=== PATIENT | female | born 1950 | race Caucasian/White ===

== ENCOUNTER 2018-03-04 21:52 | Inpatient (IN) | END 2018-03-11 20:05 | DRG 65 ==

== ENCOUNTER 2018-12-12 18:21 | Inpatient (IN) | payer OTHER ==
[~2018-12-12] VITALS: Ht 170.2 cm; Wt 70.5 kg
[~2018-12-12 18:21] MED LIST: ADV25050 INHALATION; AMLO-147 PO; ASPI-831 PO; ATOR40TA68 PO; CHLO25TA2 PO; HYDR-3980 PO; LORA1TAB PO; LOSA100T15 PO; LYR75 PO; METO-448 PO; VENL150C PO
--- NOTE | 2018-12-12 18:34 | ERD ---
ER Documentation Chief Complaint Chief Complaint R-LEG SHAKING TODAY AFTER WALKING; "LEG FEELS WEIRD" HPI This is a 68-year-old woman who suffered acute lacunar infarct to the right corpus callosum last year resulting in momentary jerking movements to the left lower extremity, who experienced a jerking movement to the right lower extremity this evening and called 911 because she was worried about another stroke. She states episode occurred while walking and she felt her right leg jerk and move for a few seconds, but it did not result in her falling or losing consciousness. She denies fevers or chills, no headache no blurry vision, no vomiting or diarrhea. Patient was transported here by EMS without further complications ROS All systems reviewed and are negative except as per history of present illness. Medications Home Meds Reported Medications Aspirin* (Aspirin* EC) 81 Mg Tablet.dr, 81 MG PO DAILY, TAB 12/12/18 Venlafaxine Hcl* (Venlafaxine Hcl ER*) 150 Mg Cap.er.24h, 300 MG PO DAILY, CAP 12/12/18 Amlodipine Besylate* (Norvasc*) 5 Mg Tablet, 5 MG PO DAILY, TAB 12/12/18 Lorazepam* (Lorazepam*) 1 Mg Tablet, 1 MG PO HS PRN for ANXIETY, #30 TAB 12/12/18 Hydrocodone/Acetaminophen ([place] 10-325 Tablet) 1 Each Tablet, 1 EACH PO NEEDED, TAB 12/12/18 Metoprolol Tartrate* (Lopressor*) 25 Mg Tab, 25 MG PO BID, #60 TAB 12/12/18 Atorvastatin* (Atorvastatin*) 40 Mg Tablet, 40 MG PO QHS, #30 TAB 12/12/18 Propranolol Hcl* (Inderal* LA) 60 Mg Cap.sa.24h, 60 MG PO QAM, CAP 12/12/18 Losartan-Hydrochlorothiazide (Losartan-HCTZ) 100-12.5 Mg Tab, 1 TAB PO DAILY, TAB 12/12/18 Discontinued Reported Medications Hydrocodone/Acetaminophen ([place] 10-325 Tablet) 1 Each Tablet, 1 EACH PO N EEDED, TAB 03/04/18 Losartan Potassium* (Losartan Potassium*) 100 Mg Tablet, 100 MG PO DAILY, TAB 03/04/18 Venlafaxine Hcl* (Effexor XR*) 150 Mg Cap.sr.24h, 300 MG PO DAILY, CAP 03/04/18 Lorazepam* (Lorazepam*) 1 Mg Tablet, 1 MG PO 5 TIMES DAILY PRN for ANXIETY, #30 TAB 03/04/18 Salmeterol Xinaf/Fluticasone* (Advair*) 250-50 Diskus Inhaler, 1 INH INHALATION BID, #1 INHALER 03/04/18 Discontinued Scripts Chlorthalidone* (Chlorthalidone*) 25 Mg Tablet, 25 MG PO DAILY, #60 TAB Prov:RULAERINFelicia 03/11/18 Pregabalin* (Lyrica*) 75 Mg Capsule, 75 MG PO TID, #90 CAP Prov:RULAERINFelicia 03/11/18 Aspirin (Aspirin) 81 Mg Chew, 81 MG PO DAILY, #60 TAB Prov:RULAABBE PEREZ 03/11/18 Atorvastatin* (Atorvastatin*) 40 Mg Tablet, 40 MG PO HS, #60 TAB Prov:RULAABBE PEREZ 03/11/18 Metoprolol Tartrate* (Lopressor*) 25 Mg Tab, 25 MG PO BID, #60 TAB Prov:RULAABBE PEREZ 03/11/18 Amlodipine Besylate* (Amlodipine Besylate*) 10 Mg Tablet, 10 MG PO DAILY, #60 TAB Prov:RULAABBE 03/11/18 Allergies Allergies: Coded Allergies: codeine (Verified Allergy, Unknown, 12/12/18) PMhx/Soc Acute lacunar infarct along the anterior body of the right corpus callosum, diabetes mellitus, depression, anxiety, hypertension History of Surgery: No Anesthesia Reaction: No Hx Neurological Disorder: No Hx Respiratory Disorders: Yes (asthma, lung ca (removed half the left lung)) Hx Cardiac Disorders: Yes (HTN) Hx Psychiatric Problems: No Hx Miscellaneous Medical Probl: Yes (See EMR for details. ) Hx Alcohol Use: No Hx Substance Use: No Hx Tobacco Use: No FmHx Family History: diabetes Physical Exam Vitals Vital Signs Date Temp Pulse Resp B/P (MAP) Pulse Ox O2 O2 Flow FiO2 Time Delivery Rate 12/12/18 98.1 60 20 162/73 98 Room Air 20:01 (102) 12/12/18 98.1 54 16 155/83 100 Room Air 18:53 (107) 12/12/18 98.1 52 16 147/67 100 18:30 (93) Physical Exam GENERAL: Well-developed, well-nourished, appears anxious, afebrile, dehydrated HEENT: Dry mucous membranes, pink conjunctiva, no cervical spine tenderness or step-off deformities, no goiter, no jaundice or icterus, extraocular movements intact without pain. NEURO: Alert and oriented 3, cranial nerves II through XII intact bilaterally, pupils equal round reactive to light, no focal deficits or facial asymmetry, sensation intact distally Strength 5/5 in upper and lower extremities bilaterally CARDIAC: Regular rate and rhythm, no murmurs rubs or gallops LUNGS: Clear bilaterally no wheezing crackles or stridor ABDOMEN: Soft nontender, no guarding, no rigidity, no rebound, no psoas sign no obturator sign. SKIN: Warm and dry to touch, no abrasions, contusions, or hematomas, no lacerations, no ecchymosis, no target lesions, and without ulcers EXTREMITIES: No clubbing cyanosis or edema, calves are bilaterally symmetrical, no Homans sign, no popliteal cord sign. Distal pulses equal and bilateral PSYCH: Normal affect without agitation or irritability Result Diagram: 12/12/18184912/12/181849 Results 24 hrs Laboratory Tests Test 12/12/18 18:50 12/12/18 20:02 White Blood Count 14.5 10^3/ul Red Blood Count 4.69 10^6/ul Hemoglobin 13.5 g/dl Hematocrit 42.0 % Mean Corpuscular Volume 89.6 fl Mean Corpuscular Hemoglobin 28.8 pg Mean Corpuscular Hemoglobin Concent 32.1 g/dl Red Cell Distribution Width 13.5 % Platelet Count 409 10^3/UL Mean Platelet Volume 9.7 fl Immature Granulocytes % 0.700 % Neutrophils % 60.7 % Lymphocytes % 29.6 % Monocytes % 6.2 % Eosinophils % 2.1 % Basophils % 0.7 % Nucleated Red Blood Cells % 0.0 /100WBC Immature Granulocytes # 0.100 10^3/ul Neutrophils # 8.8 10^3/ul Lymphocytes # 4.3 10^3/ul Monocytes # 0.9 10^3/ul Eosinophils # 0.3 10^3/ul Basophils # 0.1 10^3/ul Nucleated Red Blood Cells # 0.0 10^3/ul Sodium Level 143 mmol/L Potassium Level 3.9 mmol/L Chloride Level 106 mmol/L Carbon Dioxide Level 31 mmol/L Anion Gap 6 Blood Urea Nitrogen 41 mg/dl Creatinine 0.90 mg/dl Est Glomerular Filtrat Rate mL/min > 60 mL/min Glucose Level 196 mg/dl Calcium Level 9.2 mg/dl Total Bilirubin 0.0 mg/dl Direct Bilirubin 0.00 mg/dl Indirect Bilirubin 0.0 mg/dl Aspartate Amino Transf (AST/SGOT) 37 IU/L Alanine Aminotransferase (ALT/SGPT) 72 IU/L Alkaline Phosphatase 96 IU/L Total Protein 7.4 g/dl Albumin 4.1 g/dl Globulin 3.30 g/dl Albumin/Globulin Ratio 1.24 Lipase 44 U/L Urine Color YELLOW Urine Clarity SLIGHTLY CLOUDY Urine pH 5.0 Urine Specific [place] 1.019 Urine Ketones NEGATIVE mg/dL Urine Nitrite POSITIVE mg/dL Urine Bilirubin NEGATIVE mg/dL Urine Urobilinogen NEGATIVE mg/dL Urine Leukocyte Esterase 1+ Enma/ul Urine Microscopic RBC 0 /HPF Urine Microscopic WBC 33 /HPF Urine Hemoglobin NEGATIVE mg/dL Urine Glucose NEGATIVE mg/dL Urine Total Protein NEGATIVE mg/dl Current Medications Medications Dose Sig/Timothy Start Time Status Last (Trade) Ordered Route PRN Stop Time Admin Dose Reason Admin Lorazepam 0.5 mg ONCE ONCE 12/12/18 DC 12/12/18 (Ativan) IV 19:00 12/12/18 19:04 19:01 Sodium 1,000 ml @ Q1H STAT 12/12/18 DC 12/12/18 Chloride 1,000 mls/hr IV 18:44 12/12/18 19:04 19:43 Procedures/MDM IV line was established patient was placed on cardiac care unit nurse rhythm strip revealed a sinus rhythm at about 80 bpm with upright P and T waves. Patient was afebrile I administered 1 L normal saline IV for dehydration and lorazepam 0.5 mg IV x1 for anxiety. CT scan of the brain was negative for acute bleed mass or shift.IMPRESSION: 1. No acute intracranial hemorrhage, transcortical infarction or mass effect. 2. Mild intracranial atherosclerosis and chronic small vessel ischemic changes. 3. Small lacunar infarcts in the right corpus callosum and right cingulate gyrus. 4. Mild generalized cerebral volume loss. CBC was normal, electrolytes revealed dehydration with a BUN/creatinine 41/0.9, liver function tests are normal, urinalysis revealed acute UTI. I treated the patient was ceftriaxone 1 g IV and another bolus IV saline for dehydration. Patient admitted to [facility] for continued medical management, hydration, antibiotics, and possible neurology consultation. Departure Diagnosis: Primary Impression: Muscle spasms of lower extremity Laterality: right Qualified Codes: M62.838 - Other muscle spasm Additional Impressions: Acute dehydration Acute UTI Condition: MERVAT Gallo MD Dec 12, 2018 18:34
[2018-12-12] MEDS ORDERED: SOD CHLORIDE 0.9% 1,000 ML IV STA (18:44)
[2018-12-12] MEDS ORDERED: LORAZEPAM 2 MG INJ IV ONE (19:00)
[2018-12-12] MEDS ORDERED: LOSA1TAB28 PO (19:22)
[2018-12-12] MEDS ORDERED: ATOR40TA68 PO (19:22)
[2018-12-12] MEDS ORDERED: PROP60CA7 PO (19:22)
[2018-12-12] MEDS ORDERED: METO-448 PO (19:23)
[2018-12-12] MEDS ORDERED: LORA1TAB PO (19:24)
[2018-12-12] MEDS ORDERED: HYDR-3980 PO (19:24)
[2018-12-12] MEDS ORDERED: ASPI-817 PO (19:25)
[2018-12-12] MEDS ORDERED: VENL150C94 PO (19:25)
[2018-12-12] MEDS ORDERED: AMLO5TAB4 PO (19:25)
[2018-12-12] MEDS ORDERED: NACL 0.9% 3 ML SYG IV SCH (21:00)
[2018-12-12] MEDS: AMLODIPINE 5 MG TAB PO SCH (21:00)
[2018-12-12] MEDS ORDERED: BISACODYL (EC) 5 MG TAB PO PRN (21:00)
[2018-12-12] MEDS ORDERED: NON-FORMULARY/PATIENT OWN MED (Losartan-Hydrochlorothiazide (Losartan-HCTZ) 1 TAB) PO SCH (21:00)
[2018-12-12] MEDS: ATORVASTATIN 40 MG TAB PO SCH (21:00)
[2018-12-12] MEDS ORDERED: ONDANSETRON 4 MG TAB PO PRN (21:00)
[2018-12-12] MEDS ORDERED: DOCUSATE SODIUM 100 MG CAP PO PRN (21:00)
[2018-12-12] MEDS ORDERED: CEFTRIAXONE 1 GM/50 ML (PMX) 50 ML IVPB SCH (21:30)
[2018-12-12 21:39] VITALS: BP 157/73; PULSE 51; RESP 18
[2018-12-12 22:00] VITALS: Ht 170.2 cm; Wt 70.5 kg
[2018-12-12] MEDS: ACETAMINOPHEN 325 MG TAB PO PRN (22:27)
[2018-12-13 02:50] VITALS: BP 121/57; PULSE 50; RESP 16
--- NOTE | 2018-12-13 04:33 | HP ---
Date/Time of Note Date/Time of Note Patient seen and examined on 12/12/2018 at approximately 11:30 PM Assessment/Plan VTE Prophylaxis SCD applied (from Nsg): Yes Pharmacological prophylaxis: NA/contraindicated Pharm contraindication: low risk/ambulating Lines/Catheters IV Catheter Type (from Nrsg): Saline Lock Urinary Cath still in place: No Assessment/Plan Hospital Course This is a 68-year-old female being admitted to the [facility] floor for: #1 right leg weakness and pain: Patient at the current time does not have any focal neurological deficits, she is able to lift all 4 extremities without any problems and she was able to ambulate with the assistance of her walker with the RN. She does have palpable tenderness over right hip and lumbosacral region on exam. MRI of the lumbar spine from March 2018 did show: Most notable level is at L3-L4 where multifactorial disease results in overall severe mass effect on the thecal sac. At the current time I will proceed with a x-ray of the bilateral hips as well as a repeat MRI of the lumbar spine. Physical therapy evaluation. #2 generalized weakness: Secondary likely to underlying dehydration, urinary tr act infection, and dual beta-blockade. Patient has received a bolus of normal saline in the ER, will give an additional 500 cc bolus and encourage p.o. intake. Antibiotics for UTI. Will discontinue her metoprolol at the current time. We will hold her beta-blockers at the current time, consider resumption of propranolol and discontinuation of metoprolol given that she also is bradycardic. #3 Urinary tract infection: Urine culture, ceftriaxone 1 g every 24 hours #4 tremors: Currently holding beta-blockade, consider resumption of propranolol if bradycardia improves. #5 CVA: Continue statin, aspirin #6 hypertension: Continue Norvasc, losartan hydrochlorthiazide combo, hold current beta-blockers given patient's bradycardia and if we do need to resume one can try propranolol first given that she has tremors. #7 depression: Continue home meds #8 prediabetes: Check hemoglobin A1c #9 DVT GI prophylaxis: SCDs, no GI prophylaxis indicated Further treatment strategy will be implemented as per the clinical course. Result Diagram: 12/12/18184912/12/181849 Results 24hrs Laboratory Tests Test 12/12/18 18:50 12/12/18 20:02 White Blood Count 14.5 H Red Blood Count 4.69 Hemoglobin 13.5 Hematocrit 42.0 Mean Corpuscular Volume 89.6 Mean Corpuscular Hemoglobin 28.8 L Mean Corpuscular Hemoglobin Concent 32.1 Red Cell Distribution Width 13.5 Platelet Count 409 Mean Platelet Volume 9.7 Immature Granulocytes % 0.700 H Neutrophils % 60.7 Lymphocytes % 29.6 Monocytes % 6.2 Eosinophils % 2.1 Basophils % 0.7 Nucleated Red Blood Cells % 0.0 Immature Granulocytes # 0.100 H Neutrophils # 8.8 H Lymphocytes # 4.3 H Monocytes # 0.9 Eosinophils # 0.3 Basophils # 0.1 Nucleated Red Blood Cells # 0.0 Sodium Level 143 Potassium Level 3.9 Chloride Level 106 Carbon Dioxide Level 31 Anion Gap 6 Blood Urea Nitrogen 41 H Creatinine 0.90 Est Glomerular Filtrat Rate mL/min > 60 Glucose Level 196 Calcium Level 9.2 Total Bilirubin 0.0 L Direct Bilirubin 0.00 Indirect Bilirubin 0.0 Aspartate Amino Transf (AST/SGOT) 37 Alanine Aminotransferase (ALT/SGPT) 72 H Alkaline Phosphatase 96 Total Protein 7.4 Albumin 4.1 Globulin 3.30 H Albumin/Globulin Ratio 1.24 Lipase 44 Urine Color YELLOW Urine Clarity SLIGHTLY CLOUDY A Urine pH 5.0 Urine Specific [place] 1.019 Urine Ketones NEGATIVE Urine Nitrite POSITIVE A Urine Bilirubin NEGATIVE Urine Urobilinogen NEGATIVE Urine Leukocyte Esterase 1+ H Urine Microscopic RBC 0 Urine Microscopic WBC 33 H Urine Hemoglobin NEGATIVE Urine Glucose NEGATIVE Urine Total Protein NEGATIVE HPI/ROS Admit Date/Time Admit Date/Time Dec 12, 2018 at 20:31 Hx of Present Illness Chief complaint: Right lower extremity weakness while walking This is a 68-year-old woman who suffered acute lacunar infarct to the right corpus callosum last year resulting in momentary jerking movements to the left lower extremity, who experienced a jerking movement to the right lower extremity this evening and called 911 because she was worried about another stroke. She states episode occurred while walking and she felt her right leg jerk and move for a few seconds, but it did not result in her falling or losing consciousness. She also reports that she has been experiencing right hip pain as well as back pain. She denies fevers or chills, no headache no blurry vision, no vomiting or diarrhea. Patient does not display any focal neurological deficits. No speech problems. She previously was found to have an abnormality on her lumbar MRI. She does report urinary urgency as well. She also reports a poor appetite over the last few days. Of note patient also has a history of tremors and she recently was started on propranolol approximately 10 days ago. And she is also continued her metoprolol. Patient was in rehab after her stroke and does still use a walker at times when she needs it however at home she is able to get around without needing the w alker. Allergies: Codeine Medications: See YOHANNES LEYVA Const: As per HPI Eyes : No pain discharge or redness or change in visual acuity ENT: No pain, sore throat, congestion, congestion, dysphagia or discharge Respiratory: No shortness of breath, cough, sputum, wheezing, or pleuritic pain Cardiovascular: No chest pain, palpitation, PND, or edema GI : no change in appetite, abdominal pain, nausea, vomiting, diarrhea, constipation, or change in the color his stool Genitourinary: No dysuria, hematuria, flank pain , discharge or CVA tenderness Musculoskeletal: As per HPI Skin: No rash, bruising or hives Neuro: As per HPI Endocrine: No polyuria, polydipsia, temperature intolerance Psych: No hallucination, depression, anxiety or suicidal ideation PMH/Family/Social Past Medical History CVA,Depression, hypertension, prediabetes, shingles, sciatica Medications Current Medications Amlodipine Besylate (Norvasc) 5 mg DAILY PO ; Start 12/12/18 at 21:00 Aspirin (Halfprin) 81 mg DAILY PO ; Start 12/13/18 at 09:00 Atorvastatin Calcium (Lipitor) 40 mg QHS PO ; Start 12/12/18 at 21:00 Lorazepam (Ativan) 1 mg HS PRN PO ANXIETY; Start 12/12/18 at 21:00 Venlafaxine HCl (Effexor Xr) 300 mg DAILY PO ; Start 12/13/18 at 09:00 IV Flush (NS 3 ml) 3 ml PER PROTOCOL IV ; Start 12/12/18 at 21:00 Ondansetron HCl (Zofran Tab) 4 mg Q6H PRN PO NAUSEA/VOMITING; Start 12/12/18 at 21:00 Acetaminophen (Tylenol Tab) 650 mg Q6H PRN PO .PAIN 1-3 OR TEMP Last administered on 12/12/18at 22:27; Admin Dose 650 MG; Start 12/12/18 at 21:00 Docusate Sodium (Colace) 100 mg Q12H PRN PO .CONSTIPATION; Start 12/12/18 at 21:00 Bisacodyl (Dulcolax) 5 mg DAILY PRN PO .CONSTIPATION; Start 12/12/18 at 21:00 Ceftriaxone Sodium 50 ml @ 100 mls/hr Q24H IVPB Last administered on 12/12/18at 22:27; Admin Dose 100 MLS/HR; Start 12/12/18 at 21:30 Losartan Potassium (Cozaar) 100 mg DAILY PO ; Start 12/13/18 at 09:00 Hydrochlorothiazide (Hydrochlorothiazide) 12.5 mg DAILY PO ; Start 12/13/18 at 09:00 Coded Allergies: codeine (Verified Allergy, Unknown, 12/12/18) Past Surgical History Unknown Family History Significant Family History: no pertinent family hx Social History Alcohol Use: none Smoking Status: Never smoker Drug Use: none Exam/Review of Systems Vital Signs Vitals Vital Signs Date Temp Pulse Resp B/P (MAP) Pulse Ox O2 O2 Flow FiO2 Time Delivery Rate 12/13/18 98.9 50 16 121/57 94 02:50 (78) 12/12/18 Room Air 21:02 Intake and Output 12/12/18 12/12/18 12/13/18 1515:00 23:00 07:00 IntakeIntake Total 50 ml BalanceBalance 50 ml Exam Exam General: Patient is currently lying in bed in no acute distress, she is able to sit up in the bed without any issue. HEENT: Atraumatic, normocephalic. The pupils are equal, round and reactive. Extraocular motor are intact Neck: Supple with full range of motion. No rigidity or meningismus Chest: Nontender Lungs: Clear to auscultation bilaterally no crackles rales or wheezing Heart: Normal S1-S2, Regular rhythm and rate. Abdomen: Soft , nontender, nondistended , bowel sounds are present. No guarding no rebound tenderness , No masses or organomegaly. No costovertebral temporal angle mass Extremities: Normal to inspection, no edema no cyanosis Musculoskeletal: Tenderness to palpation over the anterior thigh as well as the lumbosacral region, Neurologic: Normal mental status, speech normal, cranial nerves II through XII are intact, motor and sensory are intact, no focal weakness, strength 5 out of 5 in bilateral upper and lower extremities CRISTOBAL FERGUSON Dec 13, 2018 04:18
[2018-12-13 08:00] VITALS: BP 147/79; PULSE 50; RESP 18
[2018-12-13] MEDS: VENLAFAXINE (XR) 75 MG CAP PO SCH (09:04)
[2018-12-13] MEDS: ASPIRIN (EC) 81 MG TAB PO SCH (09:04)
[2018-12-13] MEDS: HYDROCHLOROTHIAZIDE 12.5 MG CAP PO SCH (09:06)
[2018-12-13] MEDS: LOSARTAN 50 MG TAB PO SCH (09:06)
[2018-12-13] MEDS: AMLODIPINE 5 MG TAB PO SCH (09:07)
[2018-12-13 14:00] VITALS: BP 132/18; PULSE 84; RESP 18
--- NOTE | 2018-12-13 14:05 | PN ---
Date/Time of Note Date/Time of Note DATE: 12/13/18 TIME: 14:03 Assessment/Plan VTE Prophylaxis SCD applied (from Nsg): Yes Pharmacological prophylaxis: heparin Lines/Catheters IV Catheter Type (from Nrsg): Saline Lock Urinary Cath still in place: No Assessment/Plan Hospital Course 68 yo female with h/o DDD, sciatica, CVA presents with LLE weakness - Suspect radiculopathy - CVA unlikely - PT/OT eval - Neurology consult - Patient would benefit from PT services, either inpatient or outpatient Result Diagram: 12/13/18 0506 12/13/18 0506 Results 24hrs Laboratory Tests Test 12/12/18 18:50 12/12/18 20:02 12/13/18 05:06 White Blood Count 14.5 H 11.0 #H Red Blood Count 4.69 3.84 L Hemoglobin 13.5 11.2 L Hematocrit 42.0 34.9 L Mean Corpuscular Volume 89.6 90.9 Mean Corpuscular Hemoglobin 28.8 L 29.2 Mean Corpuscular 32.1 32.1 Hemoglobin Concent Red Cell Distribution Width 13.5 13.5 Platelet Count 409 307 # Mean Platelet Volume 9.7 10.0 Immature Granulocytes % 0.700 H 0.500 H Neutrophils % 60.7 44.5 Lymphocytes % 29.6 44.0 Monocytes % 6.2 7.9 Eosinophils % 2.1 2.6 Basophils % 0.7 0.5 Nucleated Red Blood Cells % 0.0 0.0 Immature Granulocytes # 0.100 H 0.060 H Neutrophils # 8.8 H 4.9 Lymphocytes # 4.3 H 4.8 H Monocytes # 0.9 0.9 Eosinophils # 0.3 0.3 Basophils # 0.1 0.1 Nucleated Red Blood Cells # 0.0 0.0 Sodium Level 143 142 Potassium Level 3.9 3.8 Chloride Level 106 110 Carbon Dioxide Level 31 30 Anion Gap 6 2 L Blood Urea Nitrogen 41 H 31 H Creatinine 0.90 0.78 Est Glomerular Filtrat > 60 > 60 Rate mL/min Glucose Level 196 177 Calcium Level 9.2 8.6 Total Bilirubin 0.0 L 0.0 L Direct Bilirubin 0.00 0.00 Indirect Bilirubin 0.0 0.0 Aspartate Amino 37 24 Transf (AST/SGOT) Alanine 72 H 53 Aminotransferase (ALT/SGPT) Alkaline Phosphatase 96 66 Total Protein 7.4 5.8 #L Albumin 4.1 3.1 #L Globulin 3.30 H 2.70 Albumin/Globulin Ratio 1.24 1.14 Lipase 44 Urine Color YELLOW Urine Clarity SLIGHTLY CLOUDY A Urine pH 5.0 Urine Specific [place] 1.019 Urine Ketones NEGATIVE Urine Nitrite POSITIVE A Urine Bilirubin NEGATIVE Urine Urobilinogen NEGATIVE Urine Leukocyte Esterase 1+ H Urine Microscopic RBC 0 Urine Microscopic WBC 33 H Urine Hemoglobin NEGATIVE Urine Glucose NEGATIVE Urine Total Protein NEGATIVE Hemoglobin A1c 7.3 H Triglycerides Level 233 H Cholesterol Level 150 LDL Cholesterol, Calculated 63 HDL Cholesterol 40 Cholesterol/HDL Ratio 3.7 Thyroid Stimulating 1.200 Hormone (TSH) Subjective 24 Hr Interval Summary Free Text/Dictation Continues to complain of LLE weakness Wokring with PT Head CT wihtout acute path Exam/Review of Systems Exam Vitals Vital Signs Date Temp Pulse Resp B/P (MAP) Pulse Ox O2 O2 Flow FiO2 Time Delivery Rate 12/13/18 99.0 50 18 147/79 96 08:00 (101) 12/12/18 Room Air 21:02 Intake and Output 12/12/18 12/12/18 12/13/18 1515:00 23:00 07:00 IntakeIntake Total 50 ml 480 ml BalanceBalance 50 ml 480 ml Constitutional: alert, oriented, well developed Psych: no complaints, nl mood/affect Head: normocephalic, atraumatic Eyes: nl conjunctiva, EOMI, nl lids, nl sclera, PERRL ENMT: nl external ears & nose, nl lips & teeth, nl nasal mucosa & septum Neck: supple, non-tender Respiratory: clear to auscultation, normal air movement Cardiovascular: regular rate and rhythm, nl pulses Gastrointestinal: soft, nl liver, spleen, non-tender Musculoskeletal: nl extremities to inspection, nl gait and stance Extremities: normal pulses Neurological: CONE SEWER II-XII intact, nl mental status, nl speech, nl strength Skin: nl turgor; No rash or lesions Lymph: nl lymph nodes Results Results 24hrs Laboratory Tests Test 12/12/18 18:50 12/12/18 20:02 12/13/18 05:06 White Blood Count 14.5 H 11.0 #H Red Blood Count 4.69 3.84 L Hemoglobin 13.5 11.2 L Hematocrit 42.0 34.9 L Mean Corpuscular Volume 89.6 90.9 Mean Corpuscular Hemoglobin 28.8 L 29.2 Mean Corpuscular 32.1 32.1 Hemoglobin Concent Red Cell Distribution Width 13.5 13.5 Platelet Count 409 307 # Mean Platelet Volume 9.7 10.0 Immature Granulocytes % 0.700 H 0.500 H Neutrophils % 60.7 44.5 Lymphocytes % 29.6 44.0 Monocytes % 6.2 7.9 Eosinophils % 2.1 2.6 Basophils % 0.7 0.5 Nucleated Red Blood Cells % 0.0 0.0 Immature Granulocytes # 0.100 H 0.060 H Neutrophils # 8.8 H 4.9 Lymphocytes # 4.3 H 4.8 H Monocytes # 0.9 0.9 Eosinophils # 0.3 0.3 Basophils # 0.1 0.1 Nucleated Red Blood Cells # 0.0 0.0 Sodium Level 143 142 Potassium Level 3.9 3.8 Chloride Level 106 110 Carbon Dioxide Level 31 30 Anion Gap 6 2 L Blood Urea Nitrogen 41 H 31 H Creatinine 0.90 0.78 Est Glomerular Filtrat > 60 > 60 Rate mL/min Glucose Level 196 177 Calcium Level 9.2 8.6 Total Bilirubin 0.0 L 0.0 L Direct Bilirubin 0.00 0.00 Indirect Bilirubin 0.0 0.0 Aspartate Amino 37 24 Transf (AST/SGOT) Alanine 72 H 53 Aminotransferase (ALT/SGPT) Alkaline Phosphatase 96 66 Total Protein 7.4 5.8 #L Albumin 4.1 3.1 #L Globulin 3.30 H 2.70 Albumin/Globulin Ratio 1.24 1.14 Lipase 44 Urine Color YELLOW Urine Clarity SLIGHTLY CLOUDY A Urine pH 5.0 Urine Specific [place] 1.019 Urine Ketones NEGATIVE Urine Nitrite POSITIVE A Urine Bilirubin NEGATIVE Urine Urobilinogen NEGATIVE Urine Leukocyte Esterase 1+ H Urine Microscopic RBC 0 Urine Microscopic WBC 33 H Urine Hemoglobin NEGATIVE Urine Glucose NEGATIVE Urine Total Protein NEGATIVE Hemoglobin A1c 7.3 H Triglycerides Level 233 H Cholesterol Level 150 LDL Cholesterol, Calculated 63 HDL Cholesterol 40 Cholesterol/HDL Ratio 3.7 Thyroid Stimulating 1.200 Hormone (TSH) Medications Medication Current Medications Amlodipine Besylate (Norvasc) 5 mg DAILY PO Last administered on 12/13/18at 09:07; Admin Dose 5 MG; Start 12/12/18 at 21:00 Aspirin (Halfprin) 81 mg DAILY PO Last administered on 12/13/18 09:04; Admin Dose 81 MG; Start 12/13/18 at 09:00 Atorvastatin Calcium (Lipitor) 40 mg QHS PO ; Start 12/12/18 at 21:00 Lorazepam (Ativan) 1 mg HS PRN PO ANXIETY; Start 12/12/18 at 21:00 Venlafaxine HCl (Effexor Xr) 300 mg DAILY PO Last administered on 12/13/18 09:04; Admin Dose 300 MG; Start 12/13/18 at 09:00 IV Flush (NS 3 ml) 3 ml PER PROTOCOL IV ; Start 12/12/18 at 21:00 Ondansetron HCl (Zofran Tab) 4 mg Q6H PRN PO NAUSEA/VOMITING; Start 12/12/18 at 21:00 Acetaminophen (Tylenol Tab) 650 mg Q6H PRN PO .PAIN 1-3 OR TEMP Last administered on 12/12/18 22:27; Admin Dose 650 MG; Start 12/12/18 at 21:00 Docusate Sodium (Colace) 100 mg Q12H PRN PO .CONSTIPATION; Start 12/12/18 at 21:00 Bisacodyl (Dulcolax) 5 mg DAILY PRN PO .CONSTIPATION; Start 12/12/18 at 21:00 Ceftriaxone Sodium 50 ml @ 100 mls/hr Q24H IVPB Last administered on 12/12/18 22:27; Admin Dose 100 MLS/HR; Start 12/12/18 at 21:30 Losartan Potassium (Cozaar) 100 mg DAILY PO Last administered on 12/13/18 09:06; Admin Dose 100 MG; Start 12/13/18 at 09:00 Hydrochlorothiazide (Hydrochlorothiazide) 12.5 mg DAILY PO Last administered on 12/13/18 09:06; Admin Dose 12.5 MG; Start 12/13/18 at 09:00 Propranolol HCl (Inderal) 60 mg DAILY PO ; Start 12/13/18 at 14:00 Pregabalin (Lyrica) 75 mg BID PO ; Start 12/13/18 at 13:00 MACRINA PERRY MD Dec 13, 2018 14:05
[2018-12-13] MEDS: ACETAMINOPHEN 325 MG TAB PO PRN (14:11)
[2018-12-13] MEDS: PREGABALIN 75 MG CAP PO SCH ×2 (14:12→21:43)
[2018-12-13] MEDS: PROPRANOLOL 20 MG TAB PO SCH (16:01)
--- NOTE | 2018-12-13 17:51 | CONS ---
Assessment/Plan Assessment/Plan Hospital Course 68 yo F with hx of prior stroke who p/w R leg weakness x 2 days... for which neurology is consulted. The clinical picture is most ominously concerning for stroke. A lumbar radiculopathy is additionally considered. CTH is notable for chronic infarcts but is without obvious acute intracranial pathology. P: MRI brain without contrast for further characterization Await MRI L spine Cont ASA/Lipitor pending the above Cont medical management per primary PT/OT as necessary Will follow clinically Consultation Date/Type/Reason Admit Date/Time Dec 12, 2018 at 20:31 Type of Consult Neurology Reason for Consultation lower limb weakness Requesting Provider: MACRINA PERRY MD Date/Time of Note DATE: 12/13/18 TIME: 17:51 Hx of Present Illness 68 yo F with hx of stroke (03/22), sciatica and multiple other comorbidities who presents with R lower limb weakness. History was obtained from pt and chart review. The pt confirms the story below: Chief complaint: Right lower extremity weakness while walking This is a 68-year-old woman who suffered acute lacunar infarct to the right corpus callosum last year resulting in momentary jerking movements to the left lower extremity, who experienced a jerking movement to the right lower extremity this evening and called 911 because she was worried about another stroke. She states episode occurred while walking and she felt her right leg jerk and move for a few seconds, but it did not result in her falling or losing consciousness. She also reports that she has been experiencing right hip pain as well as back pain. She denies fevers or chills, no headache no blurry vision, no vomiting or diarrhea. Patient does not display any focal neurological deficits. No speech problems. She previously was found to have an abnormality on her lumbar MRI. She does report urinary urgency as well. She also reports a poor appetite over the last few days. Of note patient also has a history of tremors and she recently was started on propranolol approximately 10 days ago. And she is also continued her metoprolol. Patient was in rehab after her stroke and does still use a walker at times when she needs it however at home she is able to get around without needing the walker. negative unless noted otherwise in HPI Exam/Review of Systems Exam Vitals Vital Signs Date Temp Pulse Resp B/P (MAP) Pulse Ox O2 O2 Flow FiO2 Time Delivery Rate 12/13/18 98.8 84 18 132/18 96 14:00 (56) 12/12/18 Room Air 21:02 Intake and Output 12/12/18 12/12/18 12/13/18 1515:00 23:00 07:00 IntakeIntake Total 50 ml 480 ml BalanceBalance 50 ml 480 ml Exam PE: Gen Appearance: No Apparent Distress HEENT: Normocephalic Cardiovascular: Regular rate Lungs: Clear bilaterally Abdomen: Soft Extremities: Dry NE: The patient was alert and fully oriented. Language was normal. Fund of knowledge was normal. Pupils were equal and reactive to light. There was no afferent pupillary defect. Visual barton were normal. Funduscopic examination was limited. Extra-ocular movements were full. Ptosis was absent. There was no nystagmus. Facial sensation was normal. Face was symmetric with normal strength. Hearing was intact. Palate movements were normal. Neck strength was normal. There was normal tongue bulk and speed of movement. Tone was normal. Muscle bulk was normal. I did not see fasciculations. Arms were strong to confrontation; hip flexors were mildly weak; lower limbs were mildly weak. She had weak dorsiflexion of her left foot. Vibration sensation was normal. Temperature and pinprick sensation was normal. Rapid alternating movements were normal. There was no dysmetria. There was no intention tremor. Gait was steady when ambulating with a FWW; the pt had di fficulty lifting her R leg while walking. Arm reflexes were symmetric; leg reflex was mildly diminished on the R. Valenzuela's sign was absent. Plantar responses were flexor. Results Result Diagram: 12/13/18 0506 12/13/18 0506 Results 24hrs Laboratory Tests Test 12/12/18 18:50 12/12/18 20:02 12/13/18 05:06 White Blood Count 14.5 H 11.0 #H Red Blood Count 4.69 3.84 L Hemoglobin 13.5 11.2 L Hematocrit 42.0 34.9 L Mean Corpuscular Volume 89.6 90.9 Mean Corpuscular Hemoglobin 28.8 L 29.2 Mean Corpuscular 32.1 32.1 Hemoglobin Concent Red Cell Distribution Width 13.5 13.5 Platelet Count 409 307 # Mean Platelet Volume 9.7 10.0 Immature Granulocytes % 0.700 H 0.500 H Neutrophils % 60.7 44.5 Lymphocytes % 29.6 44.0 Monocytes % 6.2 7.9 Eosinophils % 2.1 2.6 Basophils % 0.7 0.5 Nucleated Red Blood Cells % 0.0 0.0 Immature Granulocytes # 0.100 H 0.060 H Neutrophils # 8.8 H 4.9 Lymphocytes # 4.3 H 4.8 H Monocytes # 0.9 0.9 Eosinophils # 0.3 0.3 Basophils # 0.1 0.1 Nucleated Red Blood Cells # 0.0 0.0 Sodium Level 143 142 Potassium Level 3.9 3.8 Chloride Level 106 110 Carbon Dioxide Level 31 30 Anion Gap 6 2 L Blood Urea Nitrogen 41 H 31 H Creatinine 0.90 0.78 Est Glomerular Filtrat > 60 > 60 Rate mL/min Glucose Level 196 177 Calcium Level 9.2 8.6 Total Bilirubin 0.0 L 0.0 L Direct Bilirubin 0.00 0.00 Indirect Bilirubin 0.0 0.0 Aspartate Amino 37 24 Transf (AST/SGOT) Alanine 72 H 53 Aminotransferase (ALT/SGPT) Alkaline Phosphatase 96 66 Total Protein 7.4 5.8 #L Albumin 4.1 3.1 #L Globulin 3.30 H 2.70 Albumin/Globulin Ratio 1.24 1.14 Lipase 44 Urine Color YELLOW Urine Clarity SLIGHTLY CLOUDY A Urine pH 5.0 Urine Specific Renick 1.019 Urine Ketones NEGATIVE Urine Nitrite POSITIVE A Urine Bilirubin NEGATIVE Urine Urobilinogen NEGATIVE Urine Leukocyte Esterase 1+ H Urine Microscopic RBC 0 Urine Microscopic WBC 33 H Urine Hemoglobin NEGATIVE Urine Glucose NEGATIVE Urine Total Protein NEGATIVE Hemoglobin A1c 7.3 H Triglycerides Level 233 H Cholesterol Level 150 LDL Cholesterol, Calculated 63 HDL Cholesterol 40 Cholesterol/HDL Ratio 3.7 Thyroid Stimulating 1.200 Hormone (TSH) Medications Medication Current Medications Amlodipine Besylate (Norvasc) 5 mg DAILY PO Last administered on 12/13/18at 09:07; Admin Dose 5 MG; Start 12/12/18 at 21:00 Aspirin (Halfprin) 81 mg DAILY PO Last administered on 12/13/18at 09:04; Admin Dose 81 MG; Start 12/13/18 at 09:00 Atorvastatin Calcium (Lipitor) 40 mg QHS PO ; Start 12/12/18 at 21:00 Lorazepam (Ativan) 1 mg HS PRN PO ANXIETY; Start 12/12/18 at 21:00 Venlafaxine HCl (Effexor Xr) 300 mg DAILY PO Last administered on 12/13/18at 09:04; Admin Dose 300 MG; Start 12/13/18 at 09:00 IV Flush (NS 3 ml) 3 ml PER PROTOCOL IV ; Start 12/12/18 at 21:00 Ondansetron HCl (Zofran Tab) 4 mg Q6H PRN PO NAUSEA/VOMITING; Start 12/12/18 at 21:00 Acetaminophen (Tylenol Tab) 650 mg Q6H PRN PO .PAIN 1-3 OR TEMP Last administered on 12/13/18at 14:11; Admin Dose 650 MG; Start 12/12/18 at 21:00 Docusate Sodium (Colace) 100 mg Q12H PRN PO .CONSTIPATION; Start 12/12/18 at 21:00 Bisacodyl (Dulcolax) 5 mg DAILY PRN PO .CONSTIPATION; Start 12/12/18 at 21:00 Losartan Potassium (Cozaar) 100 mg DAILY PO Last administered on 12/13/18at 09: 06; Admin Dose 100 MG; Start 12/13/18 at 09:00 Hydrochlorothiazide (Hydrochlorothiazide) 12.5 mg DAILY PO Last administered on 12/13/18 09:06; Admin Dose 12.5 MG; Start 12/13/18 at 09:00 Propranolol HCl (Inderal) 60 mg DAILY PO Last administered on 12/13/18at 16:01; Admin Dose 60 MG; Start 12/13/18 at 14:00 Pregabalin (Lyrica) 75 mg BID PO Last administered on 12/13/18at 14:12; Admin Dose 75 MG; Start 12/13/18 at 13:00 Past Medical History reviewed Home Meds Reported Medications Aspirin* (Aspirin* EC) 81 Mg Tablet.dr, 81 MG PO DAILY, TAB 12/12/18 Venlafaxine Hcl* (Venlafaxine Hcl ER*) 150 Mg Cap.er.24h, 300 MG PO DAILY, CAP 12/12/18 Amlodipine Besylate* (Norvasc*) 5 Mg Tablet, 5 MG PO DAILY, TAB 12/12/18 Lorazepam* (Lorazepam*) 1 Mg Tablet, 1 MG PO HS PRN for ANXIETY, #30 TAB 12/12/18 Hydrocodone/Acetaminophen (Rupert 10-325 Tablet) 1 Each Tablet, 1 EACH PO NEEDED, TAB 12/12/18 Metoprolol Tartrate* (Lopressor*) 25 Mg Tab, 25 MG PO BID, #60 TAB 12/12/18 Atorvastatin* (Atorvastatin*) 40 Mg Tablet, 40 MG PO QHS, #30 TAB 12/12/18 Propranolol Hcl* (Inderal* LA) 60 Mg Cap.sa.24h, 60 MG PO QAM, CAP 12/12/18 Losartan-Hydrochlorothiazide (Losartan-HCTZ) 100-12.5 Mg Tab, 1 TAB PO DAILY, TAB 12/12/18 Discontinued Reported Medications Hydrocodone/Acetaminophen (Rupert 10-325 Tablet) 1 Each Tablet, 1 EACH PO NEEDED, TAB 03/04/18 Losartan Potassium* (Losartan Potassium*) 100 Mg Tablet, 100 MG PO DAILY, TAB 03/04/18 Venlafaxine Hcl* (Effexor XR*) 150 Mg Cap.sr.24h, 300 MG PO DAILY, CAP 03/04/18 Lorazepam* (Lorazepam*) 1 Mg Tablet, 1 MG PO 5 TIMES DAILY PRN for ANXIETY, #30 TAB 03/04/18 Salmeterol Xinaf/Fluticasone* (Advair*) 250-50 Diskus Inhaler, 1 INH INHALATION BID, #1 INHALER 03/04/18 Discontinued Scripts Chlorthalidone* (Chlorthalidone*) 25 Mg Tablet, 25 MG PO DAILY, #60 TAB Prov:ABBE HORTA 03/11/18 Pregabalin* (Lyrica*) 75 Mg Capsule, 75 MG PO TID, #90 CAP Prov:ABBE HORTA 03/11/18 Aspirin (Aspirin) 81 Mg Chew, 81 MG PO DAILY, #60 TAB Prov:ABBE HORTA 03/11/18 Atorvastatin* (Atorvastatin*) 40 Mg Tablet, 40 MG PO HS, #60 TAB Prov:ABBE HORTA 03/11/18 Metoprolol Tartrate* (Lopressor*) 25 Mg Tab, 25 MG PO BID, #60 TAB Prov:ABBE HORTA 03/11/18 Amlodipine Besylate* (Amlodipine Besylate*) 10 Mg Tablet, 10 MG PO DAILY, #60 TAB Prov:ABBE HORTA 03/11/18 Medications Current Medications Amlodipine Besylate (Norvasc) 5 mg DAILY PO Last administered on 12/13/18 09:07; Admin Dose 5 MG; Start 12/12/18 at 21:00 Aspirin (Halfprin) 81 mg DAILY PO Last administered on 12/13/18 09:04; Admin Dose 81 MG; Start 12/13/18 at 09:00 Atorvastatin Calcium (Lipitor) 40 mg QHS PO ; Start 12/12/18 at 21:00 Lorazepam (Ativan) 1 mg HS PRN PO ANXIETY; Start 12/12/18 at 21:00 Venlafaxine HCl (Effexor Xr) 300 mg DAILY PO Last administered on 12/13/18 09:04; Admin Dose 300 MG; Start 12/13/18 at 09:00 IV Flush (NS 3 ml) 3 ml PER PROTOCOL IV ; Start 12/12/18 at 21:00 Ondansetron HCl (Zofran Tab) 4 mg Q6H PRN PO NAUSEA/VOMITING; Start 12/12/18 at 21:00 Acetaminophen (Tylenol Tab) 650 mg Q6H PRN PO .PAIN 1-3 OR TEMP Last administered on 12/13/18 14:11; Admin Dose 650 MG; Start 12/12/18 at 21:00 Docusate Sodium (Colace) 100 mg Q12H PRN PO .CONSTIPATION; Start 12/12/18 at 21:00 Bisacodyl (Dulcolax) 5 mg DAILY PRN PO .CONSTIPATION; Start 12/12/18 at 21:00 Losartan Potassium (Cozaar) 100 mg DAILY PO Last administered on 12/13/18 09:06; Admin Dose 100 MG; Start 12/13/18 at 09:00 Hydrochlorothiazide (Hydrochlorothiazide) 12.5 mg DAILY PO Last administered on 12/13/18 09:06; Admin Dose 12.5 MG; Start 12/13/18 at 09:00 Propranolol HCl (Inderal) 60 mg DAILY PO Last administered on 12/13/18 16:01; A dmin Dose 60 MG; Start 12/13/18 at 14:00 Pregabalin (Lyrica) 75 mg BID PO Last administered on 12/13/18 14:12; Admin Dose 75 MG; Start 12/13/18 at 13:00 Allergies: Coded Allergies: codeine (Verified Allergy, Unknown, 12/12/18) Past Surgical History reviewed Social History reviewed Alcohol Use: none Smoking Status: Never smoker Drug Use: none KATRINA ASHLEY NP Dec 13, 2018 17:51
[2018-12-13 20:00] VITALS: BP 134/63; PULSE 71; RESP 19
[2018-12-13] MEDS: LORAZEPAM 1 MG TAB PO PRN (21:43)
[2018-12-13] MEDS: ATORVASTATIN 40 MG TAB PO SCH (21:43)
[2018-12-14 02:00] VITALS: BP 148/76; PULSE 61; RESP 18
[2018-12-14] MEDS: ACETAMINOPHEN 325 MG TAB PO PRN ×3 (06:57→16:31)
[2018-12-14 08:00] VITALS: BP 133/60; PULSE 56; RESP 18
[2018-12-14] MEDS: ASPIRIN (EC) 81 MG TAB PO SCH (08:35)
[2018-12-14] MEDS: VENLAFAXINE (XR) 75 MG CAP PO SCH (08:35)
[2018-12-14] MEDS: HYDROCHLOROTHIAZIDE 12.5 MG CAP PO SCH (08:35)
[2018-12-14] MEDS: AMLODIPINE 5 MG TAB PO SCH (08:35)
[2018-12-14] MEDS: LOSARTAN 50 MG TAB PO SCH (08:36)
[2018-12-14] MEDS: PREGABALIN 75 MG CAP PO SCH ×2 (08:36→21:05)
[2018-12-14] MEDS: PROPRANOLOL 20 MG TAB PO SCH (08:36)
[2018-12-14 14:00] VITALS: BP 117/66; PULSE 57; RESP 18
--- NOTE | 2018-12-14 14:32 | PN ---
Date/Time of Note Date/Time of Note DATE: 12/14/18 TIME: 14:30 Assessment/Plan VTE Prophylaxis Risk score (from Ns)>0 risk: 3 SCD applied (from Ns): Yes Pharmacological prophylaxis: heparin Lines/Catheters IV Catheter Type (from Nrsg): Saline Lock Urinary Cath still in place: No Assessment/Plan Hospital Course 68 yo female with h/o DDD, sciatica, CVA presents with LLE weakness - MRI negative for stroke. Lumbar MRI does not show acute process. Likely this is from deconditioning and degenerative disc disease. Requires PT h/o CVA - Continue aspirin, statin, BP control Discharge plan: - Pending acute rehab evaluation Result Diagram: 12/13/18 0506 12/13/18 0506 Subjective 24 Hr Interval Summary Free Text/Dictation MRI negative for stroke MRI back shows degenerative disc disease but no nerve impingement Patient offered discharge, prefers to wait to see if she can go to acute rehab Exam/Review of Systems Exam Vitals Vital Signs Date Temp Pulse Resp B/P (MAP) Pulse Ox O2 O2 Flow FiO2 Time Delivery Rate 12/14/18 98.2 56 18 133/60 97 Room Air 08:00 (84) Intake and Output 12/13/18 12/13/18 12/14/18 1515:00 23:00 07:00 IntakeIntake Total 450 ml 350 ml 480 ml BalanceBalance 450 ml 350 ml 480 ml Constitutional: alert, oriented, well developed Psych: no complaints, nl mood/affect Head: normocephalic, atraumatic Eyes: nl conjunctiva, EOMI, nl lids, nl sclera, PERRL ENMT: nl external ears & nose, nl lips & teeth, nl nasal mucosa & septum Neck: supple, non-tender Respiratory: clear to auscultation, normal air movement Cardiovascular: regular rate and rhythm, nl pulses Gastrointestinal: soft, nl liver, spleen, non-tender Musculoskeletal: nl extremities to inspection, nl gait and stance Extremities: normal pulses Neurological: DEPUTY FELONY CLERK II-XII intact, nl mental status, nl speech, nl strength Skin: nl turgor; No rash or lesions Lymph: nl lymph nodes Medications Medication Current Medications Amlodipine Besylate (Norvasc) 5 mg DAILY PO Last administered on 12/14/18at 08:35; Admin Dose 5 MG; Start 12/12/18 at 21:00 Aspirin (Halfprin) 81 mg DAILY PO Last administered on 12/14/18 08:35; Admin Dose 81 MG; Start 12/13/18 at 09:00 Atorvastatin Calcium (Lipitor) 40 mg QHS PO Last administered on 12/13/18 21:43; Admin Dose 40 MG; Start 12/12/18 at 21:00 Lorazepam (Ativan) 1 mg HS PRN PO ANXIETY Last administered on 12/13/18 21:43; Admin Dose 1 MG; Start 12/12/18 at 21:00 Venlafaxine HCl (Effexor Xr) 300 mg DAILY PO Last administered on 12/14/18 08:35; Admin Dose 300 MG; Start 12/13/18 at 09:00 IV Flush (NS 3 ml) 3 ml PER PROTOCOL IV ; Start 12/12/18 at 21:00 Ondansetron HCl (Zofran Tab) 4 mg Q6H PRN PO NAUSEA/VOMITING; Start 12/12/18 at 21:00 Docusate Sodium (Colace) 100 mg Q12H PRN PO .CONSTIPATION; Start 12/12/18 at 21:00 Bisacodyl (Dulcolax) 5 mg DAILY PRN PO .CONSTIPATION; Start 12/12/18 at 21:00 Losartan Potassium (Cozaar) 100 mg DAILY PO Last administered on 12/14/18 08:36; Admin Dose 100 MG; Start 12/13/18 at 09:00 Hydrochlorothiazide (Hydrochlorothiazide) 12.5 mg DAILY PO Last administered on 12/14/18 08:35; Admin Dose 12.5 MG; Start 12/13/18 at 09:00 Propranolol HCl (Inderal) 60 mg DAILY PO Last administered on 12/14/18 08:36; Admin Dose 60 MG; Start 12/13/18 at 14:00 Pregabalin (Lyrica) 75 mg BID PO Last administered on 12/14/18 08:36; Admin Dose 75 MG; Start 12/13/18 at 13:00 Acetaminophen (Tylenol Tab) 650 mg Q4H PRN PO .PAIN 1-3 OR TEMP Last administered on 12/14/18 11:27; Admin Dose 650 MG; Start 12/14/18 at 11:30 MACRINA PERRY MD Dec 14, 2018 14:32
--- NOTE | 2018-12-14 14:45 | CONS ---
Assessment/Plan Assessment/Plan Hospital Course 68 yo F with hx of prior stroke who p/w R leg weakness x 2 days... for which neurology is consulted. Progression of known lumbar spine disease is considered. MRI brain is notable for small chronic strokes, but is reassuringly without acute intracranial pathology,. MRI L spine is most notable for mild-moderate central canal stenosis at L3-L5, but is stable from prior. P: Cont ASA/Lipitor for secondary stroke prevention, per ops PT/OT as necessary Other management per primary Will follow clinically Consultation Date/Type/Reason Admit Date/Time Dec 12, 2018 at 20:31 Type of Consult Neurology Reason for Consultation lower limb weakness Requesting Provider: MACRINA PERRY MD Date/Time of Note DATE: 12/14/18 TIME: 14:45 24 HR Interval Summary Free Text/Dictation Continues medsurg monitoring. No changes in pt condition reported. Pt is without new complaints at this time. Exam Vital Signs Vitals Vital Signs Date Temp Pulse Resp B/P (MAP) Pulse Ox O2 O2 Flow FiO2 Time Delivery Rate 12/14/18 98.2 56 18 133/60 97 Room Air 08:00 (84) Intake and Output 12/13/18 12/13/18 12/14/18 1515:00 23:00 07:00 IntakeIntake Total 450 ml 350 ml 480 ml BalanceBalance 450 ml 350 ml 480 ml Exam PE: Gen Appearance: No Apparent Distress HEENT: Normocephalic Cardiovascular: Regular rate Lungs: Clear bilaterally Abdomen: Soft Extremities: Dry NE: The patient was alert and fully oriented. Language was normal. Fund of knowledge was normal. Pupils were equal and reactive to light. There was no afferent pupillary defect. Visual barton were normal. Funduscopic examination was limited. Extra-ocular movements were full. Ptosis was absent. There was no nystagmus. Facial sensation was normal. Face was symmetric with normal strength. Hearing was intact. Palate movements were normal. Neck strength was normal. There was normal tongue bulk and speed of movement. Tone was normal. Muscle bulk was normal. I did not see fasciculations. Arms were strong to confrontation; hip flexors were mildly weak; lower limbs were mildly weak. She had weak dorsiflexion of her left foot. Vibration sensation was normal. Temperature and pinprick sensation was normal. Rapid alternating movements were normal. There was no dysmetria. There was no intention tremor. Gait was steady when ambulating with a FWW; the pt had difficulty lifting her R leg while walking. Arm reflexes were symmetric; leg reflex was mildly diminished on the R. Valenzuela's sign was absent. Plantar responses were flexor. KATRIAN ASHLEY NP Dec 14, 2018 14:45 ROGER DALE Dec 15, 2018 06:33
[2018-12-14 20:00] VITALS: BP 129/69; PULSE 54; RESP 18
[2018-12-14] MEDS: ATORVASTATIN 40 MG TAB PO SCH (21:05)
[2018-12-14] MEDS: LORAZEPAM 1 MG TAB PO PRN (21:05)
[2018-12-15 02:00] VITALS: BP 142/69; PULSE 53; RESP 17
[2018-12-15 07:54] VITALS: BP 145/69; PULSE 61; RESP 18
[2018-12-15] MEDS ORDERED: LORAZEPAM 0.5 MG TAB PO ONE (08:00)
[2018-12-15] MEDS ORDERED: HYDROCODONE/APAP (5/325) TAB PO ONE ×2 (08:00→17:30)
[2018-12-15] MEDS: HYDROCHLOROTHIAZIDE 12.5 MG CAP PO SCH (09:00)
[2018-12-15] MEDS: ASPIRIN (EC) 81 MG TAB PO SCH (09:04)
[2018-12-15] MEDS: VENLAFAXINE (XR) 75 MG CAP PO SCH (09:04)
[2018-12-15] MEDS: LOSARTAN 50 MG TAB PO SCH (09:04)
[2018-12-15] MEDS: AMLODIPINE 5 MG TAB PO SCH (09:05)
[2018-12-15] MEDS: PREGABALIN 75 MG CAP PO SCH ×2 (09:05→20:11)
[2018-12-15] MEDS: PROPRANOLOL 20 MG TAB PO SCH (09:05)
--- NOTE | 2018-12-15 10:00 | CONS ---
Assessment/Plan Assessment/Plan Hospital Course 68 yo F with hx of prior stroke who p/w R leg weakness x 2 days... for which neurology is consulted. Progression of known lumbar spine disease is considered. MRI brain is notable for small chronic strokes, but is reassuringly without acute intracranial pathology,. MRI L spine is most notable for mild-moderate central canal stenosis at L3-L5, but is stable from prior. P: Cont ASA/Lipitor for secondary stroke prevention, per ops PT/OT as necessary Other management per primary Will follow clinically Consultation Date/Type/Reason Admit Date/Time Dec 12, 2018 at 20:31 Type of Consult Neurology Requesting Provider: MACRINA PERRY MD Date/Time of Note DATE: 12/15/18 TIME: 09:59 24 HR Interval Summary Free Text/Dictation Continues acute care Exam Vital Signs Vitals Vital Signs Date Temp Pulse Resp B/P (MAP) Pulse Ox O2 O2 Flow FiO2 Time Delivery Rate 12/15/18 98.2 61 18 145/69 97 Room Air 07:54 (94) Intake and Output 12/14/18 12/14/18 12/15/18 1515:00 23:00 07:00 IntakeIntake Total 120 ml 600 ml 360 ml BalanceBalance 120 ml 600 ml 360 ml Exam Comprehensive completed; stable from prior. ROGER DALE Dec 15, 2018 10:00
[2018-12-15 14:00] VITALS: BP 122/66; PULSE 59; RESP 18
--- NOTE | 2018-12-15 14:51 | PN ---
Date/Time of Note Date/Time of Note DATE: 12/15/18 TIME: 14:46 Assessment/Plan VTE Prophylaxis Risk score (from Nsg)>0 risk: 6 SCD applied (from Nsg): Yes Pharmacological prophylaxis: heparin Lines/Catheters IV Catheter Type (from Nrsg): Saline Lock Urinary Cath still in place: No Assessment/Plan Hospital Course 68 yo female with h/o DDD, sciatica, CVA presents with LLE weakness - MRI negative for stroke. Lumbar MRI does not show acute process. Likely this is from deconditioning and degenerative disc disease. Requires PT h/o CVA - Continue aspirin, statin, BP control Depression: - Continue venlafaxine Hypertension: - Continue HCTZ and amlodipine, well controlled Discharge plan: - Pending acute rehab approval. If not, to home with HHPT Result Diagram: 12/13/18 0506 12/13/18 0506 Subjective 24 Hr Interval Summary Free Text/Dictation Complains of hearburn. Requests lozenge and antacid Awaiting approval for inpatient rehab Exam/Review of Systems Exam Vitals Vital Signs Date Temp Pulse Resp B/P (MAP) Pulse Ox O2 O2 Flow FiO2 Time Delivery Rate 12/15/18 98.2 61 18 145/69 97 Room Air 07:54 (94) Intake and Output 12/14/18 12/14/18 12/15/18 1515:00 23:00 07:00 IntakeIntake Total 120 ml 600 ml 360 ml BalanceBalance 120 ml 600 ml 360 ml Constitutional: alert, oriented, well developed Psych: no complaints, nl mood/affect Head: normocephalic, atraumatic Eyes: nl conjunctiva, EOMI, nl lids, nl sclera, PERRL ENMT: nl external ears & nose, nl lips & teeth, nl nasal mucosa & septum Neck: supple, non-tender Respiratory: clear to auscultation, normal air movement Cardiovascular: regular rate and rhythm, nl pulses Gastrointestinal: soft, nl liver, spleen, non-tender Musculoskeletal: nl extremities to inspection, nl gait and stance Extremities: normal pulses Neurological: INTERMEDIATE DESIGNER II-XII intact, nl mental status, nl speech, nl strength Skin: nl turgor; No rash or lesions Lymph: nl lymph nodes Medications Medication Current Medications Amlodipine Besylate (Norvasc) 5 mg DAILY PO Last administered on 12/15/18 09:05; Admin Dose 5 MG; Start 12/12/18 at 21:00 Aspirin (Halfprin) 81 mg DAILY PO Last administered on 12/15/18 09:04; Admin Dose 81 MG; Start 12/13/18 at 09:00 Atorvastatin Calcium (Lipitor) 40 mg QHS PO Last administered on 12/14/18 21:05; Admin Dose 40 MG; Start 12/12/18 at 21:00 Lorazepam (Ativan) 1 mg HS PRN PO ANXIETY Last administered on 12/14/18 21:05; Admin Dose 1 MG; Start 12/12/18 at 21:00 Venlafaxine HCl (Effexor Xr) 300 mg DAILY PO Last administered on 12/15/18 09:04; Admin Dose 300 MG; Start 12/13/18 at 09:00 IV Flush (NS 3 ml) 3 ml PER PROTOCOL IV ; Start 12/12/18 at 21:00 Ondansetron HCl (Zofran Tab) 4 mg Q6H PRN PO NAUSEA/VOMITING; Start 12/12/18 at 21:00 Docusate Sodium (Colace) 100 mg Q12H PRN PO .CONSTIPATION; Start 12/12/18 at 21:00 Bisacodyl (Dulcolax) 5 mg DAILY PRN PO .CONSTIPATION; Start 12/12/18 at 21:00 Losartan Potassium (Cozaar) 100 mg DAILY PO Last administered on 12/15/18 09:04; Admin Dose 100 MG; Start 12/13/18 at 09:00 Hydrochlorothiazide (Hydrochlorothiazide) 12.5 mg DAILY PO Last administered on 12/14/18 08:35; Admin Dose 12.5 MG; Start 12/13/18 at 09:00 Propranolol HCl (Inderal) 60 mg DAILY PO Last administered on 12/15/18 09:05; Admin Dose 60 MG; Start 12/13/18 at 14:00 Pregabalin (Lyrica) 75 mg BID PO Last administered on 12/15/18 09:05; Admin Dose 75 MG; Start 12/13/18 at 13:00 Acetaminophen (Tylenol Tab) 650 mg Q4H PRN PO .PAIN 1-3 OR TEMP Last administered on 12/14/18 16:31; Admin Dose 650 MG; Start 12/14/18 at 11:30 Phenol (Cepastat Lozenge) 1 lozenge Q1H PRN MT DRY MOUTH; Start 12/15/18 at 15:00 MACRINA PERRY MD Dec 15, 2018 14:51
[2018-12-15] MEDS ORDERED: AL HYDROX/MG HYDROX/SIMETH 30 ML CUP PO PRN (15:00)
[2018-12-15] MEDS: CEPASTAT LOZENGE MT PRN ×2 (15:03→21:04)
[2018-12-15] MEDS: ACETAMINOPHEN 325 MG TAB PO PRN (15:47)
[2018-12-15] MEDS: ATORVASTATIN 40 MG TAB PO SCH (20:11)
[2018-12-15 20:47] VITALS: BP 116/57; PULSE 65; RESP 16
[2018-12-15] MEDS: LORAZEPAM 1 MG TAB PO PRN (21:04)
[2018-12-16] MEDS: ACETAMINOPHEN 325 MG TAB PO PRN (02:54)
[2018-12-16 02:55] VITALS: BP 150/67; PULSE 87; RESP 18
[2018-12-16 08:12] VITALS: BP 144/72; PULSE 77; RESP 18
[2018-12-16] MEDS: PREGABALIN 75 MG CAP PO SCH ×2 (08:49→20:32)
[2018-12-16] MEDS: VENLAFAXINE (XR) 75 MG CAP PO SCH (08:49)
[2018-12-16] MEDS: ASPIRIN (EC) 81 MG TAB PO SCH (08:49)
[2018-12-16] MEDS: AMLODIPINE 5 MG TAB PO SCH (08:50)
[2018-12-16] MEDS: LOSARTAN 50 MG TAB PO SCH (08:51)
[2018-12-16] MEDS: PROPRANOLOL 20 MG TAB PO SCH (08:51)
[2018-12-16] MEDS: HYDROCHLOROTHIAZIDE 12.5 MG CAP PO SCH (08:56)
[2018-12-16] MEDS ORDERED: ASA/ACETAMINOPHEN/CAFF TAB PO ONE (10:30)
[2018-12-16] MEDS: clonAZEPAM 0.5 MG TAB PO SCH ×2 (10:36→21:38)
[2018-12-16] MEDS: CEPASTAT LOZENGE MT PRN ×3 (10:39→18:24)
--- NOTE | 2018-12-16 13:39 | CONS ---
Assessment/Plan Assessment/Plan Hospital Course 68 yo F with hx of prior stroke who p/w R leg weakness x 2 days... for which neurology is consulted. Progression of known lumbar spine disease is considered. MRI brain is notable for small chronic strokes, but is reassuringly without acute intracranial pathology,. MRI L spine is most notable for mild-moderate central canal stenosis at L3-L5, but is stable from prior. P: Cont ASA/Lipitor for secondary stroke prevention, per ops PT/OT as tolerated Other management per primary Will follow Consultation Date/Type/Reason Admit Date/Time Dec 16, 2018 at 08:23 Type of Consult Neurology Requesting Provider: MACRINA PERRY MD Date/Time of Note DATE: 12/16/18 TIME: 13:37 24 HR Interval Summary Free Text/Dictation Continues acute care.. Working well w/ PT.. Hoping for acute rehab.. Exam Vital Signs Vitals Vital Signs Date Temp Pulse Resp B/P (MAP) Pulse Ox O2 O2 Flow FiO2 Time Delivery Rate 12/16/18 99.0 77 18 144/72 96 08:12 (96) 12/15/18 Room Air 14:00 Intake and Output 12/15/18 12/15/18 12/16/18 1515:00 23:00 07:00 IntakeIntake Total 240 ml 1000 ml BalanceBalance 240 ml 1000 ml Exam PE: Gen Appearance: No Apparent Distress HEENT: Normocephalic Cardiovascular: Regular rate Abdomen: Soft Extremities: Dry NE: The patient was alert and oriented. Language was normal. Fund of knowledge was normal. Pupils were equal and reactive to light. There was no afferent pupillary defect. Visual barton were normal. Funduscopic examination was limited. Extra-ocular movements were full. Ptosis was absent. There was no nystagmus. Facial sensation was normal. Face was symmetric with normal strength. Hearing was intact. Palate movements were normal. Neck strength was normal. There was normal tongue bulk and speed of movement. Tone was normal. Muscle bulk was normal. I did not see fasciculations. Arms and legs were grossly symmetric.. Vibration sensation was reduced distally. Temperature and pinprick sensation was normal. Rapid alternating movements were normal. There was no dysmetria. There was no intention tremor. Gait was deferred due to bedrest. Arm and leg reflexes were symmetric. Valenzuela's sign was absent. Plantar responses were flexor. ROGER DALE Dec 16, 2018 13:39
[2018-12-16 15:11] VITALS: BP 110/56; PULSE 54; RESP 19
--- NOTE | 2018-12-16 17:20 | PN ---
Date/Time of Note Date/Time of Note DATE: 12/16/18 TIME: 17:14 Assessment/Plan VTE Prophylaxis Risk score (from Nsg)>0 risk: 6 SCD applied (from Nsg): Yes Pharmacological prophylaxis: LMWH Lines/Catheters IV Catheter Type (from Nrsg): Saline Lock Urinary Cath still in place: No Assessment/Plan Hospital Course S: migraine headache this am, improved with meds, now nursing reports cough O: General: A&O x3, answering questions appropriately. lethargic ++ HEENT: NC/ AT. PERRL. EOM intact Neck: supple CVS: S1, S2, RRR. no murmurs. no pain on chest wall palpation Lungs: CTA b/l. wheezing ? Abd: soft, nontender, +BS Ext: moving all extremities, no edema skin: no rashes assessment and plan: 68 yo female with h/o DDD, sciatica, CVA presents with LLE weakness - patient is still quite symptomatic, will need rehab. resides alone, cannot care for herself - MRI negative for stroke. Lumbar MRI does not show acute process but does show diffuse degenerative disease - will get ortho review, steroid shot ? - Requires PT h/o CVA - Continue aspirin, statin, BP control Mild sepsis with UTI -Not present on admission -ecoli on urine cx, pansensitive -send blood cx -supportive care, abx Cough and wheezing on exam -bronchodilator therapy -CXR Hx of lung ca s/p resection -CT chest? Dyslipidemia -statin Migraines -improved with excedrine -on home propranolol DM 2: -a1c 7.3 -no meds so far, change to carb controlled diet -SSI, intervene as tolerated Depression: - Continue venlafaxine Hypertension: - Continue HCTZ and amlodipine, well controlled Dispo: acute rehab vs SNF placement continue supportive care Result Diagram: 12/13/18 0506 12/13/18 0506 Exam/Review of Systems Exam Vitals Vital Signs Date Temp Pulse Resp B/P (MAP) Pulse Ox O2 O2 Flow FiO2 Time Delivery Rate 12/16/18 98.3 54 19 110/56 94 15:11 (74) 12/15/18 Room Air 14:00 Intake and Output 12/15/18 12/15/18 12/16/18 1515:00 23:00 07:00 IntakeIntake Total 240 ml 1000 ml BalanceBalance 240 ml 1000 ml Medications Medication Current Medications Amlodipine Besylate (Norvasc) 5 mg DAILY PO Last administered on 12/16/18 08:50; Admin Dose 5 MG; Start 12/12/18 at 21:00 Aspirin (Halfprin) 81 mg DAILY PO Last administered on 12/16/18 08:49; Admin Dose 81 MG; Start 12/13/18 at 09:00 Atorvastatin Calcium (Lipitor) 40 mg QHS PO Last administered on 12/15/18 20:11; Admin Dose 40 MG; Start 12/12/18 at 21:00 Lorazepam (Ativan) 1 mg HS PRN PO ANXIETY Last administered on 12/15/18 21:04; Admin Dose 1 MG; Start 12/12/18 at 21:00 Venlafaxine HCl (Effexor Xr) 300 mg DAILY PO Last administered on 12/16/18 08:49; Admin Dose 300 MG; Start 12/13/18 at 09:00 IV Flush (NS 3 ml) 3 ml PER PROTOCOL IV ; Start 12/12/18 at 21:00 Ondansetron HCl (Zofran Tab) 4 mg Q6H PRN PO NAUSEA/VOMITING; Start 12/12/18 at 21:00 Docusate Sodium (Colace) 100 mg Q12H PRN PO .CONSTIPATION; Start 12/12/18 at 21:00 Bisacodyl (Dulcolax) 5 mg DAILY PRN PO .CONSTIPATION; Start 12/12/18 at 21:00 Losartan Potassium (Cozaar) 100 mg DAILY PO Last administered on 12/16/18 08:51; Admin Dose 100 MG; Start 12/13/18 at 09:00 Hydrochlorothiazide (Hydrochlorothiazide) 12.5 mg DAILY PO Last administered on 12/14/18 08:35; Admin Dose 12.5 MG; Start 12/13/18 at 09:00 Propranolol HCl (Inderal) 60 mg DAILY PO Last administered on 12/16/18 08:51; Admin Dose 60 MG; Start 12/13/18 at 14:00 Pregabalin (Lyrica) 75 mg BID PO Last administered on 12/16/18 08:49; Admin Dose 75 MG; Start 12/13/18 at 13:00 Acetaminophen (Tylenol Tab) 650 mg Q4H PRN PO .PAIN 1-3 OR TEMP Last administered on 12/16/18at 02:54; Admin Dose 650 MG; Start 12/14/18 at 11:30 Phenol (Cepastat Lozenge) 1 lozenge Q1H PRN MT DRY MOUTH Last administered on 12/16/18at 15:01; Admin Dose 1 LOZENGE; Start 12/15/18 at 15:00 Al Hydrox/Mg Hydrox/Simethicone (Mag-Al Plus) 30 ml Q4H PRN PO GASTROINTESTINAL UPSET; Start 12/15/18 at 15:00 Clonazepam (Klonopin) 0.5 mg Q12H PO Last administered on 12/16/18at 10:36; Admin Dose 0.5 MG; Start 12/16/18 at 09:30 Acetaminophen/ Aspirin/Caffeine (Excedrin) 1 tab Q8H PRN PO migraine headache; Start 12/16/18 at 17:30; Status UNV Guaifenesin/ Dextromethorphan (Robitussin Dm Liquid Cup) 5 ml Q4H PRN PO cough; Start 12/16/18 at 17:30; Status UNV Ceftriaxone Sodium 50 ml @ 100 mls/hr Q24H IVPB ; Start 12/16/18 at 17:30; Status UNV LULY NASSAR Dec 16, 2018 17:20
[2018-12-16] MEDS ORDERED: ALBUTEROL 0.083% (NEB) 2.5 MG/3 ML AMP HHN STA (17:26)
[2018-12-16] MEDS ORDERED: ALBUTEROL 0.083% (NEB) 2.5 MG/3 ML AMP HHN PRN (17:30)
[2018-12-16] MEDS ORDERED: GUAIFENESIN/DM 5ML CUP PO PRN (17:30)
[2018-12-16] MEDS ORDERED: DEXTROSE 50% 50 ML SYRINGE IV PRN ×2 (18:00)
[2018-12-16] MEDS ORDERED: GLUCAGON 1 MG INJ IM PRN (18:00)
[2018-12-16] MEDS ORDERED: GLUCOSE GEL 15 GRAM TUBE BUCCAL PRN (18:00)
[2018-12-16] MEDS ORDERED: GLUCOSE GEL 15 GRAM TUBE PO PRN ×2 (18:00)
[2018-12-16] MEDS: INSULIN ASPART [NOVOLOG] 3 ML PEN SC SCH ×2 (18:05→20:28)
[2018-12-16] MEDS ORDERED: IOHEXOL 300MG/ML 150 ML BTL ONE (18:10)
[2018-12-16] MEDS ORDERED: SOD CHLORIDE 0.9% 100 ML ONE (18:10)
[2018-12-16] MEDS: CEFTRIAXONE 1 GM/50 ML (PMX) 50 ML IVPB SCH (18:18)
[2018-12-16] MEDS: ALBUTEROL 0.083% (NEB) 2.5 MG/3 ML AMP HHN SCH (19:58)
[2018-12-16 20:00] VITALS: BP 145/67; PULSE 61; RESP 19
[2018-12-16] MEDS: ASA/ACETAMINOPHEN/CAFF TAB PO PRN (20:32)
[2018-12-16] MEDS: ATORVASTATIN 40 MG TAB PO SCH (20:32)
[2018-12-16] MEDS: DOCUSATE SODIUM 100 MG CAP PO SCH (20:33)
[2018-12-17] MEDS: CEPASTAT LOZENGE MT PRN ×2 (00:09→01:37)
[2018-12-17] MEDS: LORAZEPAM 1 MG TAB PO PRN (01:41)
[2018-12-17] MEDS: ALBUTEROL 0.083% (NEB) 2.5 MG/3 ML AMP HHN SCH ×4 (01:46→20:05)
[2018-12-17 02:00] VITALS: BP 140/62; PULSE 62; RESP 18
[2018-12-17] MEDS ORDERED: PHENOL 1.4% SOLN 180 ML BTL MT PRN (03:30)
[2018-12-17] MEDS ORDERED: LIDOCAINE 2% VISC 15 ML CUP PO ONE (04:00)
[2018-12-17 07:57] VITALS: BP 171/80; PULSE 74; RESP 18
[2018-12-17] MEDS: INSULIN ASPART [NOVOLOG] 3 ML PEN SC SCH ×4 (08:00→20:45)
[2018-12-17] MEDS: ASPIRIN (EC) 81 MG TAB PO SCH (08:24)
[2018-12-17] MEDS: LOSARTAN 50 MG TAB PO SCH (08:25)
[2018-12-17] MEDS: PREGABALIN 75 MG CAP PO SCH ×2 (08:25→20:40)
[2018-12-17] MEDS: VENLAFAXINE (XR) 75 MG CAP PO SCH (08:25)
[2018-12-17] MEDS: AMLODIPINE 5 MG TAB PO SCH (08:26)
[2018-12-17] MEDS: HYDROCHLOROTHIAZIDE 12.5 MG CAP PO SCH (08:26)
[2018-12-17] MEDS: PROPRANOLOL 20 MG TAB PO SCH (08:26)
[2018-12-17] MEDS: clonAZEPAM 0.5 MG TAB PO SCH ×2 (08:30→20:42)
[2018-12-17] MEDS: DOCUSATE SODIUM 100 MG CAP PO SCH ×2 (08:38→20:44)
[2018-12-17] MEDS ORDERED: ENOXAPARIN 40 MG/0.4 ML SYG SC SCH (09:00)
[2018-12-17 14:00] VITALS: BP 112/60; PULSE 67; RESP 19
--- NOTE | 2018-12-17 14:08 | PDOCDIS ---
Discharge Instructions CONDITION [id number] Patient Condition: [id number] Stable FOLLOW UP/APPOINTMENTS Follow-up Plan 1. Patient will need to follow-up with a back specialist. She will benefit from steroid injection into her back 2. Patient also needs to follow-up with pulmonary. Patient can follow-up with Douglas Alvarez MD. Information is noted below. Patient may need follow-up CT scan in 3-4 months of her chest. f/u with the pulmunologist Dr Alvarez Name, Degree : Douglas Alvarez MD Specialty : Pulmonary / Critical Care Medicine Office Address : [address] [place] [address] Office Office 3. Patient needs to complete 10 days of antibiotics for urinary tract infection and pneumonia. LULY NASSAR Dec 17, 2018 14:08
--- NOTE | 2018-12-17 14:20 | DS ---
Date/Time of Note Date/Time of Note DATE: 12/17/18 TIME: 14:09 Discharge Summary Admission/Discharge Info Admit Date/Time Dec 16, 2018 at 08:23 Discharge Date/Time Discharge Diagnosis 68 yo female with h/o DDD, sciatica, CVA presents with 1. LLE weakness 2/2 DJD 2. h/o CVA 3. Mild sepsis with UTI (ecoli) 4. 1.5cm RUL lesion concerning for infiltrate versus lesion 5. Prior Hx of lung ca s/p resection 6. Dyslipidemia 7. Migraines : excedrine / propranolol 8. DM 2: -a1c 7.3 , diet controlled only 9. Depression: 10. Hypertension: . Patient Condition: Stable Hospital Course 68-year-old female with a history of degenerative joint disease, sciatica and previous CVA who presented with left lower extremity weakness and difficulty walking. She was worked up with MRI of the brain which was negative for stroke, lumbar MRI which showed no acute process but showed diffuse degenerative disease. During her hospitalization she became mildly septic with a urinary tract infection and also started having a lot of coughing and wheezing concerning for respiratory infection. A chest CT confirmed the presence of i nfiltrates and pneumonia. Of note is that patient has a history of lung cancer and is status post lung resection in the past. There was also concern for interstitial lung disease on the CAT scan. She was treated appropriately for this. The recommendations are for repeat CT in 3-4 months versus conversion comparison of current CT with old CT scans if available to determine further intervention. At this time patient is doing much better. We attempted to get orthopedic review to see if patient will benefit from a steroid injection into her back to improve her symptoms, but this was unsuccessful. Patient tells me she has been authorized to see a back specialist as outpatient but was unable to see him before she came into the hospital. It is recommended that she follow-up with the specialist. In the interim she will continue physical therapy and pain control. At this time she has been assessed by myself in stable condition and is going to be discharged to a fdc facility for continued rehab. . Home Meds Reported Medications Aspirin* (Aspirin* EC) 81 Mg Tablet.dr, 81 MG PO DAILY, TAB 12/12/18 Venlafaxine Hcl* (Venlafaxine Hcl ER*) 150 Mg Cap.er.24h, 300 MG PO DAILY, CAP 12/12/18 Amlodipine Besylate* (Norvasc*) 5 Mg Tablet, 5 MG PO DAILY, TAB 12/12/18 Lorazepam* (Lorazepam*) 1 Mg Tablet, 1 MG PO HS PRN for ANXIETY, #30 TAB 12/12/18 Hydrocodone/Acetaminophen ([place] 10-325 Tablet) 1 Each Tablet, 1 EACH PO NEEDED, TAB 12/12/18 Metoprolol Tartrate* (Lopressor*) 25 Mg Tab, 25 MG PO BID, #60 TAB 12/12/18 Atorvastatin* (Atorvastatin*) 40 Mg Tablet, 40 MG PO QHS, #30 TAB 12/12/18 Propranolol Hcl* (Inderal* LA) 60 Mg Cap.sa.24h, 60 MG PO QAM, CAP 12/12/18 Losartan-Hydrochlorothiazide (Losartan-HCTZ) 100-12.5 Mg Tab, 1 TAB PO DAILY, TAB 12/12/18 Discontinued Reported Medications Hydrocodone/Acetaminophen ([place] 10-325 Tablet) 1 Each Tablet, 1 EACH PO NEEDED, TAB 03/04/18 Losartan Potassium* (Losartan Potassium*) 100 Mg Tablet, 100 MG PO DAILY, TAB 03/04/18 Venlafaxine Hcl* (Effexor XR*) 150 Mg Cap.sr.24h, 300 MG PO DAILY, CAP 03/04/18 Lorazepam* (Lorazepam*) 1 Mg Tablet, 1 MG PO 5 TIMES DAILY PRN for ANXIETY, #30 TAB 03/04/18 Salmeterol Xinaf/Fluticasone* (Advair*) 250-50 Diskus Inhaler, 1 INH INHALATION BID, #1 INHALER 03/04/18 Discontinued Scripts Chlorthalidone* (Chlorthalidone*) 25 Mg Tablet, 25 MG PO DAILY, #60 TAB Prov:ABBE HORTA 03/11/18 Pregabalin* (Lyrica*) 75 Mg Capsule, 75 MG PO TID, #90 CAP Prov:ABBE HORTA 03/11/18 Aspirin (Aspirin) 81 Mg Chew, 81 MG PO DAILY, #60 TAB Prov:ABBE HORTA 03/11/18 Atorvastatin* (Atorvastatin*) 40 Mg Tablet, 40 MG PO HS, #60 TAB Prov:ABBE HORTA 03/11/18 Metoprolol Tartrate* (Lopressor*) 25 Mg Tab, 25 MG PO BID, #60 TAB Prov:ABBE HORTA 03/11/18 Amlodipine Besylate* (Amlodipine Besylate*) 10 Mg Tablet, 10 MG PO DAILY, #60 TAB Prov:ABBE HORTA 03/11/18 Follow-up Plan 1. Patient will need to follow-up with a back specialist. She will benefit from steroid injection into her back 2. Patient also needs to follow-up with pulmonary. Patient can follow-up with Douglas Alvarez MD. Information is noted below. Patient may need follow-up CT scan in 3-4 months of her chest. f/u with the pulmunologist Dr Alvarez Name, Degree : Douglas Alvarez MD Specialty : Pulmonary / Critical Care Medicine Office Address : [address] [place] [address] Office Office 3. Patient needs to complete 10 days of antibiotics for urinary tract infection and pneumonia. Primary Care Provider Not On Staff Doctor Time spent on discharge: > 30 minutes Pending Labs Laboratory Tests Test 12/16/18 18:17 12/16/18 20:25 12/17/18 06:32 12/17/18 07:55 Bedside 88 166 116 Glucose mg/dL (70-220) mg/dL (70-220) mg/dL (70-220) White Blood 9.5 Count 10^3/ul (4.8-1 0.8) Red Blood 3.97 Count 10^6/ul (4.20- 5.40) Hemoglobin 11.5 g/dl (12.0-16. 0) Hematocrit 36.2 % (37.0-47.0) Mean 91.2 Corpuscular fl (82.0-101.0 Volume ) Mean 29.0 Corpuscular pg (29.0-33.0) Hemoglobin Mean 31.8 Corpuscular g/dl (32.0-37. Hemoglobin Conc 0) ent Red Cell 14.0 Distribution % (11.5-14.5) Width Platelet Count 228 10^3/UL (140-4 15) Mean Platelet 10.5 Volume fl (7.4-10.4) Immature 0.500 Granulocytes % % (0.001-0.429 ) Neutrophils % 78.4 % (39.0-77.0) Lymphocytes % 14.0 % (15.0-51.0) Monocytes % 6.4 % (0.0-11.0) Eosinophils % 0.4 % (0.0-7.0) Basophils % 0.3 % (0.0-2.0) Nucleated Red 0.0 Blood Cells % /100WBC (0.0-0 .0) Immature 0.050 Granulocytes # 10^3/ul (0.0-0 .031) Neutrophils # 7.4 10^3/ul (1.6-7 .5) Lymphocytes # 1.3 10^3/ul (0.8-2 .9) Monocytes # 0.6 10^3/ul (0.3-0 .9) Eosinophils # 0.0 10^3/ul (0.0-0 .5) Basophils # 0.0 10^3/ul (0.0-0 .1) Nucleated Red 0.0 Blood Cells # 10^3/ul (0.0-0 .0) Sodium Level 141 mmol/L (135-14 4) Potassium 3.9 Level mmol/L (3.5-5. 1) Chloride Level 106 mmol/L (97-110 ) Carbon Dioxide 30 Level mmol/L (21-31) Anion Gap 5 (5-13) Blood Urea 13 Nitrogen mg/dl (7-20) Creatinine 0.75 mg/dl (0.44-1. 00) Est Glomerular > 60 Filtrat mL/min (>60) Rate mL/min Glucose Level 100 mg/dl (70-220) Calcium Level 9.0 mg/dl (8.4-10. 2) Phosphorus 3.5 Level mg/dl (2.5-4.9 ) Magnesium 1.8 Level mg/dl (1.7-2.5 ) Test 12/17/18 11:48 Bedside 138 Glucose mg/dL (70-220) LULY NASSAR Dec 17, 2018 14:19
[2018-12-17] MEDS ORDERED: LEVOFLOXACIN 750MG/D5W (PMX) 150 ML IVPB ONE (15:00)
[2018-12-17] MEDS ORDERED: CLON0.5T14 PO (16:01)
[2018-12-17] MEDS ORDERED: PHEN177S68 MT (16:01)
[2018-12-17] MEDS ORDERED: LEVO750T25 PO (16:01)
[2018-12-17] MEDS ORDERED: LYR75 PO (16:01)
[2018-12-17] MEDS ORDERED: ADV25050 INHALATION (16:01)
[2018-12-17] MEDS ORDERED: GUAI120S26 PO (16:01)
[2018-12-17] MEDS ORDERED: ALBU2.5V3 HHN ×2 (16:01)
[2018-12-17] MEDS ORDERED: EXCED PO (16:01)
[2018-12-17] MEDS ORDERED: NYST1000 PO (16:01)
[2018-12-17] MEDS ORDERED: LACT1CAP57 PO (16:01)
--- NOTE | 2018-12-17 16:04 | CONS ---
Assessment/Plan Assessment/Plan Hospital Course 68 yo F with hx of prior stroke who p/w R leg weakness x 2 days... for which neurology is consulted. Progression of known lumbar spine disease is considered. MRI brain is notable for small chronic strokes, but is reassuringly without acute intracranial pathology,. MRI L spine is most notable for mild-moderate central canal stenosis at L3-L5, but is stable from prior. P: Cont ASA/Lipitor for secondary stroke prevention, per ops PT/OT as tolerated Other management per primary Will follow Consultation Date/Type/Reason Admit Date/Time Dec 16, 2018 at 08:23 Type of Consult Neurology Reason for Consultation lower limb weakness Requesting Provider: MACRINA PERRY MD Date/Time of Note DATE: 12/17/18 TIME: 16:04 24 HR Interval Summary Free Text/Dictation Continues medsurg monitoring. Pt states that she may be going back to [facility]. Awaiting possible discharge. Exam Vital Signs Vitals Vital Signs Date Temp Pulse Resp B/P (MAP) Pulse Ox O2 O2 Flow FiO2 Time Delivery Rate 12/17/18 67 19 95 21 15:04 12/17/18 99.8 112/60 14:00 (77) 12/17/18 Room Air 07:57 Intake and Output 12/16/18 12/16/18 12/17/18 1515:00 23:00 07:00 IntakeIntake Total 600 ml 410 ml OutputOutput Total 600 ml 200 ml BalanceBalance 0 ml 210 ml Exam PE: Gen Appearance: No Apparent Distress HEENT: Normocephalic Cardiovascular: Regular rate Abdomen: Soft Extremities: Dry NE: The patient was alert and oriented. Language was normal. Fund of knowledge was normal. Pupils were equal and reactive to light. There was no afferent pupillary defect. Visual barton were normal. Funduscopic examination was limited. Extra-ocular movements were full. Ptosis was absent. There was no nystagmus. Facial sensation was normal. Face was symmetric with normal strength. Hearing was intact. Palate movements were normal. Neck strength was normal. There was normal tongue bulk and speed of movement. Tone was normal. Muscle bulk was normal. I did not see fasciculations. Arms and legs were grossly symmetric.. Vibration sensation was reduced distally. Temperature and pinprick sensation was normal. Rapid alternating movements were normal. There was no dysmetria. There was no intention tremor. Gait was deferred due to bedrest. Arm and leg reflexes were symmetric. Valenzuela's sign was absent. Plantar responses were flexor. KATRINA ASHLEY NP Dec 17, 2018 16:04
[2018-12-17] MEDS: NYSTATIN SUSP 5 ML CUP PO SCH ×2 (17:18→20:40)
[2018-12-17] MEDS: CEFTRIAXONE 1 GM/50 ML (PMX) 50 ML IVPB SCH (17:19)
[2018-12-17] MEDS: ASA/ACETAMINOPHEN/CAFF TAB PO PRN (17:19)
[2018-12-17] MEDS: ATORVASTATIN 40 MG TAB PO SCH (20:40)
== END 2018-12-17 21:05 | DRG 551 ==
LOC: E/R 18:21 → PP2 20:31 → OBSVTOIN 12-16 08:23
PROVIDERS: ADMIT Family Medicine; ATTEND Family Medicine
DX: M47.896 Other spondylosis, lumbar region (principal); A41.51 Sepsis due to Escherichia coli [E. coli]; J18.9 Pneumonia, unspecified organism; N39.0 Urinary tract infection, site not specified; J84.9 Interstitial pulmonary disease, unspecified; Z86.73 Personal history of transient ischemic attack (TIA), and cerebral infarction without residual deficits; Z79.82 Long term (current) use of aspirin; I10 Essential (primary) hypertension; F32.9 Major depressive disorder, single episode, unspecified; Z85.118 Personal history of other malignant neoplasm of bronchus and lung; E78.5 Hyperlipidemia, unspecified; G43.909 Migraine, unspecified, not intractable, without status migrainosus; E11.9 Type 2 diabetes mellitus without complications; M54.30 Sciatica, unspecified side; J98.4 Other disorders of lung; E86.0 Dehydration
CPT/HCPCS: 36415; 70450; 70551; 71046; 71260; 72148; 73520; 80048; 80053; 80061; 81001; 82962; 83036; 83690; 83735; 84100; 84443; 85025; 87040; 87070; 87086; 94640; 94664; 96374; 97116; 97162; 97530; G0378; J0696; J1650; J1815; J1956; J2060; J7030; Q9967

== ENCOUNTER 2019-03-03 15:34 | Emergency (ER) | payer OTHER ==
[~2019-03-03] VITALS: Ht 170.2 cm; Wt 69.1 kg
[~2019-03-03 15:34] MED LIST changes: +ALBU2.5V3 HHN; -AMLO-147 PO; +AMLO5TAB4 PO; +ASPI-817 PO; -ASPI-831 PO; -CHLO25TA2 PO; +CLON0.5T14 PO; +EXCED PO; +GUAI120S25 PO; +LACT1CAP57 PO; +LEVO750T25 PO; -LORA1TAB PO; -LOSA100T15 PO; +LOSA1TAB28 PO; -METO-448 PO; +NYST1000 PO; +PHEN177S68 MT; +PROP60CA7 PO; -VENL150C PO; +VENL150C94 PO
[2019-03-03 15:47] VITALS: Ht 170.2 cm; Wt 69.1 kg
[2019-03-03] MEDS ORDERED: PROP80CA3 PO (20:55)
[2019-03-03] MEDS ORDERED: LORA1TAB PO (20:56)
[2019-03-03 21:15] VITALS: BP 148/76; PULSE 72; RESP 16
--- NOTE | 2019-03-03 22:00 | ERD ---
ER Documentation Chief Complaint Chief Complaint back pain punable to stand/walk w/out falling, xseveral mths, mri done HPI Patient is a 68-year-old female with spinal stenosis and previous stroke who presents saying that she keeps falling down. She says that she cannot walk. She said this all stems from a fall on January 09. She has been feeling weak since. She uses a walker but when she fell today she was not using her walker. She has lower back pain and has had several MRIs of the lower back which have shown spinal stenosis. She denies incontinence. She does have a primary doctor. Upon review of old medical records this is the patient's third visit to the ER since 2018. She is requesting a neurosurgeon. ROS All systems reviewed and are negative except as per history of present illness. Medications Home Meds Active Scripts Acetaminophen/Aspirin/Caffeine* (Excedrin*) 1 Tab Tab, 1 TAB PO Q8H PRN for migraine headache for 30 Days, TAB Prov:MADAYLULY 12/17/18 Reported Medications Lorazepam* (Lorazepam*) 1 Mg Tablet, 1 MG PO 03/03/19 Propranolol Hcl* (Propranolol Hcl*) 80 Mg Cap.sa.24h, 80 MG PO TID, TAB 03/03/19 Aspirin* (Aspirin* EC) 81 Mg Tablet.dr, 81 MG PO DAILY, TAB 12/12/18 Venlafaxine Hcl* (Venlafaxine Hcl ER*) 150 Mg Cap.er.24h, 300 MG PO DAILY, CAP 12/12/18 Amlodipine Besylate* (Norvasc*) 5 Mg Tablet, 5 MG PO DAILY, TAB 12/12/18 Hydrocodone/Acetaminophen ([place] 10-325 Tablet) 1 Each Tablet, 1 EACH PO NEEDED, TAB 12/12/18 Atorvastatin* (Atorvastatin*) 40 Mg Tablet, 40 MG PO QHS, #30 TAB 12/12/18 Losartan-Hydrochlorothiazide (Losartan-HCTZ) 100-12.5 Mg Tab, 1 TAB PO DAILY, TAB 12/12/18 Discontinued Reported Medications Propranolol Hcl* (Inderal* LA) 60 Mg Cap.sa.24h, 60 MG PO QAM, CAP 12/12/18 Discontinued Scripts Salmeterol Xinaf/Fluticasone* (Advair*) 250-50 Diskus Inhaler, 1 INH INHALATION BID, #1 INHALER Prov:LULY NASSAR. 12/17/18 Lactobacillus Rhamnosus* (Culturelle*) 1 Each Cap.sprink, 1 CAP PO BID for 10 Days, CAP Prov:LULY NASSAR. 12/17/18 Levofloxacin* (Levaquin*) 750 Mg Tablet, 750 MG PO DAILY for 6 Days, TAB Prov:LULY NASSAR. 12/17/18 Utqmiirhyxc-B-Pjfuixmprw Hb* (Guaifenesin* DM Syrup) 120 Ml Syrup, 5 ML PO Q4H PRN for cough for 30 Days Prov:LULY NASSAR 12/17/18 Phenol (Phenaseptic) 177 Ml [place], 2 SPRAY MT Q2H PRN for SORE THROAT for 30 Days, SPRAY Prov:LULY NASSAR. 12/17/18 Pregabalin* (Lyrica*) 75 Mg Capsule, 75 MG PO BID for 30 Days, CAP Prov:LULY NASSAR. 12/17/18 Clonazepam* (Clonazepam*) 0.5 Mg Tablet, 0.5 MG PO Q12H for 4 Days, TAB Prov:LULY NASSAR. 12/17/18 Albuterol Sulfate* (Albuterol Sulfate* Neb) 0.083%-3 Ml Neb, 2.5 MG HHN Q2H RESP THERAPY PRN for SHORTNESS OF BREATH for 30 Days Prov:LULY NASSAR. 12/17/18 Albuterol Sulfate* (Albuterol Sulfate* Neb) 0.083%-3 Ml Neb, 2.5 MG HHN Q6H RESP THERAPY for 2 Days Prov:LULY NASSAR. 12/17/18 Nystatin (Nystatin) 100,000 Unit/1 Ml Oral.susp, 5 ML PO QID for 7 Days Prov:LULY NASSAR. 12/17/18 Allergies Allergies: Coded Allergies: pregabalin (Unverified Allergy, Intermediate, 03/03/19) tongue swelling and numbing per patient codeine (Unverified Allergy, Unknown, 03/03/19) PMhx/Soc History of Surgery: Yes (tonsillectomy, left lung resection due to ca) Anesthesia Reaction: No Hx Neurological Disorder: Yes (CVA) Hx Respiratory Disorders: Yes (Hx. of asthma, hx of left lung cancer) Hx Psychiatric Problems: No Hx Miscellaneous Medical Probl: Yes Hx Alcohol Use: No Hx Substance Use: No Hx Tobacco Use: No Smoking Status: Never smoker FmHx Family History: No diabetes Physical Exam Vitals Vital Signs Date Temp Pulse Resp B/P (MAP) Pulse Ox O2 O2 Flow FiO2 Time Delivery Rate 03/03/19 72 16 148/76 98 Room Air 21:15 (100) 03/03/19 97.9 62 16 155/73 100 Room Air 19:59 (100) 03/03/19 97.3 61 18 128/67 97 15:47 (87) Physical Exam Const: No acute distress Head: Atraumatic Eyes: Normal Conjunctiva ENT: Normal External Ears, Nose and Mouth. Neck: Full range of motion. No meningismus. Resp: Clear to auscultation bilaterally Cardio: Regular rate and rhythm, no murmurs Abd: Soft, non tender, non distended. Normal bowel sounds Skin: No petechiae or rashes Back: No midline or flank tenderness Ext: No cyanosis, or edema Neur: Awake and alert, patient has 5 out of 5 strength in the lower extremities and is able to flex and extend the feet without difficulty bilaterally Psych: Normal Mood and Affect Procedures/MDM Patient is a 5-year-old female presents with lower back pain and leg weakness. She has no incontinence or fevers. I reviewed the MRI done in December of this year of the lumbar spine. I believe she likely has symptoms related to spinal stenosis. I doubt epidural abscess, epidural hematoma, or cauda equina syndrome. I spoke with Dr. Luciano who is the neurosurgeon on-call. We do not feel the patient requires a repeat MRI in the emergency department at this time but he will see her in the office in 1 week for consultation. She may benefit from laminectomy. Departure Diagnosis: Primary Impression: Spinal stenosis Spinal region: unspecified Qualified Codes: M48.00 - Spinal stenosis, site unspecified Additional Impression: Acute weakness Condition: Fair Patient Instructions: Back Pain (Acute Or Chronic), Weakness, Unk Cause Referrals: AARON LUCIANO MD Additional Instructions: SPECIALIST: YOU HAVE A MEDICAL CONDITION WHICH REQUIRES YOU TO SEE A SPECIALIST WITHIN THE NEXT 1-2 DAYS. PLEASE FOLLOW UP WITH YOUR PRIMARY PHYSICIAN FOR REFFERAL.IF YOU DO NOT HAVE A PRIMARY CARE PHYSICIAN AND/OR YOU CAN NOT AFFORD TO SEE A PHYSICIAN THE FOLLOWING RESOURCES HAVE BEEN SUPPLIED TO YOU. IT IS YOUR RESPONSIBILITY TO BE SEEN BY THE SPECIALIST Call [phone] Luciano said he can see you on Sunday in [place] office. CHAS AARON MD Mar 03, 2019 22:00
== END 2019-03-03 21:16 | disposition home or self-care (01) ==
LOC: E/R 15:34
DX: M48.00 Spinal stenosis, site unspecified (principal); R53.1 Weakness; J45.909 Unspecified asthma, uncomplicated; Z85.118 Personal history of other malignant neoplasm of bronchus and lung; Z79.82 Long term (current) use of aspirin; Z86.73 Personal history of transient ischemic attack (TIA), and cerebral infarction without residual deficits
CPT/HCPCS: 99282